=== PATIENT | female | born 1995 | race African-American/Black ===

== ENCOUNTER 2017-07-27 00:56 | Emergency (ER) | payer MEDICAID ==
[~2017-07-27] VITALS: Ht 162.6 cm; Wt 65.8 kg
[2017-07-27 01:12] VITALS: Ht 162.6 cm; Wt 65.8 kg
[2017-07-27 01:53] LABS: UA SPECIFIC GRAVITY >=1.030 (1.005-1.035); microscopic required? YES; urine erythrocyte 3+ (NEGATIVE)
[2017-07-27 02:00] LABS: BASOPHIL % 0.8 % (0-2); PLATELET COUNT 297 x10^3mcL (130-400)
[2017-07-27 02:01] LABS: RED CELL DISTRIBUTION WIDTH 18.1 % (11.5-14.5)
[2017-07-27 02:06] LABS: CALCIUM 8.8 mg/dL (8.5-10.1); CARBON DIOXIDE 24.5 mmol/L (21-32); CHLORIDE SERUM 107 mmol/L (98-107); CREATININE SERUM 0.9 mg/dL (0.6-1.0); GFR1 > 60 mL/min; GLUCOSE SERUM 95 mg/dL (74-106); POTASSIUM SERUM 3.4 mmol/L (3.5-5.1); SODIUM SERUM 141 mmol/L (136-145)
[2017-07-27 05:04] VITALS: BP 126/66
== END 2017-07-27 05:04 | disposition home or self-care (01) ==
LOC: ED 00:56
PROVIDERS: Emergency Medicine
DX: O23.41 Unspecified infection of urinary tract in pregnancy, first trimester (principal); N93.8 Other specified abnormal uterine and vaginal bleeding; Z3A.01 Less than 8 weeks gestation of pregnancy
CPT/HCPCS: 36415; Q0092